=== PATIENT | female | born 1990 ===

== ENCOUNTER 2021-07-08 01:01 | Emergency (ER) | payer SELFPAY ==
[~2021-07-08] VITALS: Ht 154.9 cm; Wt 77.2 kg
[2021-07-08 01:06] VITALS: BP 134/76
--- NOTE | 2021-07-08 02:19 | NUR ---
PARLOR CHAPERONE: NIL X 1 WHEN CALLED FOR X-RAY.
--- NOTE | 2021-07-08 02:48 | NUR ---
ACCOUNT SUPERVISOR: PT. NIL AT THIS TIME WHEN CALLED FOR X-RAY.
--- NOTE | 2021-07-08 03:18 | NUR ---
LIQUOR MAKER: PT. NIL X 3 WHEN CALLED FOR X-RAY.
== END 2021-07-08 03:20 | disposition left against medical advice (07) ==
LOC: ED 01:30
DX: U07.1 COVID-19 (principal); J02.0 Streptococcal pharyngitis
CPT/HCPCS: 87081; 87147; 87880; 99283; U0003; U0005